=== PATIENT | female | born 1975 | race African-American/Black ===

== ENCOUNTER 2019-06-23 13:40 | Emergency (ER) | payer MEDICAID ==
[2019-06-23] MEDS ORDERED: ONDANSETRON HCL INJ/PF 4 MG/2 ML SDV IV ONE (14:27)
[2019-06-23] MEDS ORDERED: NORMAL SALINE 1000 ML 1,000 ML IV ONE (14:27)
[2019-06-23] MEDS ORDERED: CLONIDINE 0.1 MG/24 HR PATCH.TDWK TD ONE (14:27)
--- NOTE | 2019-06-23 14:27 | ER Document Report ---
ED Medical Screen (RME) - General Stated Complaint: POSSIBLE OPIOID WITHDRAWL Time Seen by Provider: 06/23/19 14:23 - HPI Notes: 06/23/19 14:25 Patient is a 43-year-old female with a history of hypertension and chronic opioid abuse who presents requesting help with withdrawal type symptoms having not taken her opioid in 3 days as she is trying to detox herself. Patient states that she does have 3 children with her at this time and cannot go to a facility for inpatient. Patient states that she will feel heart racing and sweats intermittently with some abdominal cramping. She is otherwise able to eat and drink. She is urinating normally. Denies drug allergies. Denies fever, chest pain, shortness of breath. I have treated and performed a rapid initial assessment of this patient. A comprehensive ED assessment and evaluation of the patient, analysis of test results and completion of medical decision making process will be conducted by additional ED providers. PHYSICAL EXAMINATION: GENERAL: Well-appearing, well-nourished and in no acute distress. A&Ox4. Answers questions appropriately. Heart: RRR - Related Data Allergies/Adverse Reactions: No Known Allergies Allergy (Verified 06/23/19 14:25) Physical Exam - Vital signs Vitals: Temp Pulse Resp BP Pulse Ox 98.5 F 67 18 186/93 H 98 06/23/19 14:01 06/23/19 14:01 06/23/19 14:01 06/23/19 14:01 06/23/19 14:01 Course - Vital Signs Vital signs: Temp Pulse Resp BP Pulse Ox 98.5 F 67 18 186/93 H 98 06/23/19 14:01 06/23/19 14:01 06/23/19 14:01 06/23/19 14:01 06/23/19 14:01
[2019-06-23 15:01] LABS: AMORPHOUS SEDIMENT,URINE TRACE /HPF; APPEARANCE,URINE SLIGHTLY-CLOUDY; BILIRUBIN,URINE NEGATIVE (NEGATIVE); COLOR,URINE YELLOW; GLUCOSE, URINE NEGATIVE (NEGATIVE); KETONES,URINE NEGATIVE (NEGATIVE); PROTEIN,URINE 30 mg/dL (NEGATIVE); URINE SPECIFIC GRAVITY 1.016
[2019-06-23 15:15] LABS: URINE AMPHETAMINES SCREEN NEGATIVE; URINE BARBITURATES SCREEN NEGATIVE; URINE BENZODIAZEPINES SCREEN NEGATIVE; URINE COCAINE SCREEN NEGATIVE; URINE MARIJUANA (THC) SCREEN NEGATIVE; URINE METHADONE SCREEN NEGATIVE; URINE PHENCYCLIDINE SCREEN NEGATIVE
[2019-06-23 15:36] LABS: ABSOLUTE BASOPHILS # (AUTO) 0.1 10^3/uL (0.0-0.2); ABSOLUTE EOSINOPHILS # (AUTO) 0.1 10^3/uL (0.0-0.6); ABSOLUTE LYMPHOCYTES (AUTO) 1.8 10^3/uL (0.5-4.7); ABSOLUTE MONOCYTES (AUTO) 0.4 10^3/uL (0.1-1.4); ABSOLUTE NEUT (AUTO) 5.3 10^3/uL (1.7-8.2); BASOPHILS % (AUTO) 0.7 % (0-2); EOSINOPHILS % (AUTO) 1.6 % (0-6); HEMATOCRIT 37.4 % (36.0-47.0); HEMOGLOBIN 12.3 g/dL (12.0-15.5); LYMPHOCYTES % (AUTO) 23.2 % (13-45); MEAN CORPUSCULAR HEMOGLOBIN 29.9 pg (27.0-33.4); MEAN CORPUSCULAR VOLUME 91 fl (80-97); MONOCYTES % (AUTO) 5.1 % (3-13); PLATELET COUNT 335 10^3/uL (150-450); RED BLOOD COUNT 4.12 10^6/uL (3.72-5.28); RED CELL DISTRIBUTION WIDTH 12.7 % (11.5-14.0); SEGMENTED NEUTROPHILS % (AUTO) 69.4 % (42-78); TOTAL CELLS COUNTED % (AUTO) 100 %; WHITE BLOOD COUNT 7.6 10^3/uL (4.0-10.5)
--- NOTE | 2019-06-23 15:42 | ER Document Report ---
ED General - General Chief Complaint: Medical Complaint Stated Complaint: POSSIBLE OPIOID WITHDRAWL Time Seen by Provider: 06/23/19 14:23 Notes: HPI: Patient is a 43-year-old female who presents today stating she would like some help from opiate withdrawal. Patient states she has been taking pain medications for the last 12 years after hip fracture. She states her last medication was taken 3 days ago. She is trying to take himself off of these medications. She has 3 children so she is unable to go inpatient. She states she feels some nausea with some intermittent abdominal cramping with nonbloody diarrhea. No vomiting, fevers, headache, or chest pain. ROS: See HPI All other review of systems reviewed and otherwise negative Reviewed vital signs and nursing note as charted by RN. PHYSICAL EXAM: CONSTITUTIONAL: Alert and oriented and responds appropriately to questions. Well-appearing; well-nourished HEAD: Normocephalic; atraumatic EYES: PERRL; full extraocular range of motion; no nystagmus conjunctivae clear, sclerae non-icteric ENT: Normal nose; no rhinorrhea; moist mucous membranes; pharynx without lesions noted NECK: Supple without meningismus; non-tender; no cervical lymphadenopathy, no masses CARD: Regular rate and rhythm; no murmurs; symmetric distal pulses RESP: Normal chest excursion without splinting or tachypnea; breath sounds clear and equal bilaterally; no wheezes, no rhonchi, no rales ABD/GI: Normal bowel sounds; non-distended; soft, non-tender; no palpable organomegaly or masses BACK: The back appears normal and is non-tender to palpation EXT: Normal ROM in all joints; non-tender to palpation; no edema SKIN: No acute lesions noted; no piloerection NEURO: CN 2-12 intact; 5/5 bilateral upper and lower extremity strength with sensation intact to light touch PSYCH: The patient's mood and manner are appropriate. Grooming and personal hygiene are appropriate. TRAVEL OUTSIDE OF THE [place] IN LAST 30 DAYS: No - Related Data Allergies/Adverse Reactions: No Known Allergies Allergy (Verified 06/23/19 14:25) Home Medications: doesnt have list Past Medical History - Social History Smoking Status: Current Every Day Smoker Chew tobacco use (# tins/day): No Frequency of alcohol use: None Drug Abuse: None Family History: Reviewed & Not Pertinent Patient has suicidal ideation: No Patient has homicidal ideation: No Physical Exam - Vital signs Vitals: Temp Pulse Resp BP Pulse Ox 98.5 F 67 18 186/93 H 98 06/23/19 14:01 06/23/19 14:01 06/23/19 14:01 06/23/19 14:01 06/23/19 14:01 Course - Re-evaluation Re-evalutation: 06/23/19 15:41 Given the history and physical examination with vital signs as recorded, with a very soft nontender benign abdomen, we will provide fluids, clonidine, and have the behavioral health team see and assess the patient for outpatient options. We will most likely treat the patient symptomatically. 06/23/19 16:37 Labs as recorded. Patient does state that she has been having some dysuria over the last 2 days. Urine analysis as recorded. I have provided a gram of Rocephin. We will send a urine culture. Patient's blood pressure was slightly elevated. She is not tachycardic. She states she did not take her blood pressure medications today. We have had behavioral health seen and assessed the patient and they did provide outpatient resources. Patient states she is very c omfortable going home. I will provide a short course of clonidine to help with the withdrawal symptoms as well as a short course of Zofran and a 5-day course of Keflex for the urinary tract infection. Strict return precautions have been explained. - Vital Signs Vital signs: Temp Pulse Resp BP Pulse Ox 98.5 F 67 15 146/91 H 97 06/23/19 14:01 06/23/19 14:01 06/23/19 16:01 06/23/19 16:01 06/23/19 16:01 - Laboratory Result Diagrams: 06/23/19 15:05 06/23/19 15:05 Laboratory results interpreted by me: 06/23/19 06/23/19 14:30 15:05 AST 53 H Urine Protein 30 H Urine Nitrite (Reflex) POSITIVE H Urine Urobilinogen 4.0 H Leukocyte Esterase Rfl MODERATE H Acetaminophen < 10 L Discharge - Discharge Clinical Impression: Opiate withdrawal Urinary tract infection Qualifiers: Urinary tract infection type: site unspecified Hematuria presence: without hematuria Qualified Code(s): N39.0 - Urinary tract infection, site not specified Condition: Good Disposition: HOME, SELF-CARE Additional Instructions: Come back immediately for any worsening diarrhea, vomiting, any fevers or pain, weakness or numbness, confusion, or any other acute problems. Please make sure that you take you at home blood pressure medications as prescribed as well as the clonidine twice daily for the next 3 days. Please complete the course of antibiotics as we have prescribed for 5 days and please make sure that you follow-up with your primary care physician for reassessment of your urine analysis and urine culture as well as reassessment of your blood pressure. Prescriptions: Clonidine HCl [Catapres 0.1 mg Tablet] 0.1 mg PO Q12 PRN #6 tablet PRN Reason: Cephalexin Monohydrate [Keflex 500 mg Capsule] 500 mg PO Q8H 5 Days #15 capsule Ondansetron [Zofran Odt 4 mg Tablet] 1 tab PO Q6H #15 tab.rapdis
[2019-06-23 15:58] LABS: ACETAMINOPHEN < 10 ug/mL (10-30); ALBUMIN 4.5 g/dL (3.5-5.0); ALKALINE PHOSPHATASE 107 U/L (38-126); ANION GAP 11 (5-19); ASPARTATE AMINO TRANSFERASE 53 U/L (14-36); BILIRUBIN,DIRECT 0.4 mg/dL (0.0-0.4); BILIRUBIN,TOTAL 0.6 mg/dL (0.2-1.3); BLOOD UREA NITROGEN 11 mg/dL (7-20); CALCIUM 9.5 mg/dL (8.4-10.2); CARBON DIOXIDE 27 mmol/L (22-30); CHLORIDE 101 mmol/L (98-107); GLUCOSE 98 mg/dL (75-110); POTASSIUM 3.7 mmol/L (3.6-5.0); TOTAL PROTEIN 7.6 g/dL (6.3-8.2)
[2019-06-23] MEDS ORDERED: CEFTRIAXONE 1 GM/D5W RTU 1 GM/50 ML RTUPB IV ONE (16:04)
[2019-06-23 17:07] VITALS: BP 171/80
--- NOTE | 2019-06-23 19:27 | EKG REPORT ---
SEVERITY:- NORMAL ECG - SINUS RHYTHM : Confirmed by: Micki Martino MD 23-Jun-2019 19:26:50
== END 2019-06-23 17:13 | disposition home or self-care (01) ==
LOC: ER 13:40
DX: F11.23 Opioid dependence with withdrawal (principal); N39.0 Urinary tract infection, site not specified; F17.200 Nicotine dependence, unspecified, uncomplicated
CPT/HCPCS: 93005; 99284; 96361; 96375; 96365; 36415; 87086; 80307 ×2; 85025; 81025; 87088; 80053; 81001; 87186; 93010; J2405; J7030; J3490; J0696